=== PATIENT | female | born 1985 | race Caucasian/White ===

== ENCOUNTER 2017-03-28 05:30 | Inpatient (IN) ==
[2017-03-23 10:47] LABS: Basophils % 0.4 % (0.0-0.8); Eosinophils # 0.2 10*3/uL (0.0-0.87); Eosinophils % 2.4 % (0.00-10.9); Hematocrit 35.1 VOL% (35.7-47.0); Hemoglobin 11.3 GM/DL (12.0-16.0); Immature Granulocytes % 0.3 %; Immature Granulocytes Absolute 0.02 #; Lymphocytes # 1.3 10*3/uL (1.4-4.0); Lymphocytes % 19.6 % (21.3-54.2); Mean Corpuscular HGB Conc 32.2 GM/DL (32-36); Mean Corpuscular Hemoglobin 27 PG (27-34); Mean Corpuscular Volume 83.2 FL (87-102); Mean Platelet Volume 9.5 FL (9.6-12.0); Monocytes # 0.5 10*3/uL (0.11-0.8); Monocytes % 7.9 % (1.7-12.7); Neutrophils # 4.6 10*3/uL (1.4-7.4); Neutrophils % 69.4 % (38.7-73.9); Platelet Count 319 T/CUMM (130-400); Red Blood Count 4.22 MC/CUMM (3.8-5.5); Red Cell Distribution Width 17.9 % (9.3-17.3); White Blood Count 6.7 T/CUMM (4-12)
[2017-03-23 11:14] LABS: Apearance,Urine Slightly Hazy (Clear); Bilirubin,Urine Negative (Negative); Blood, Urine Negative (Negative); Glucose,Urine (UA) Negative (Negative); Ketones,Urine Negative (Negative); Mucus,Urine Occasional /LPF (Occasional); Nitrite,Urine Negative (Negative); Protein,Urine Negative; RBC,Urine <1 /HPF (0-4); Squamous Epithelial Cell,Urine Occasional /HPF (0-10); Urine Color Yellow (Yellow); Urine Specific Gravity 1.012 (1.001-1.035); Urine Urobilinogen < 2.0 EU/DL (0.2-1.0); WBC,Urine 1 /HPF (0-6)
[2017-03-28] MEDS ORDERED: cefOXitin 2,000 MG in SYRINGE 1 EACH IV ONE (07:00)
[2017-03-28] MEDS ORDERED: FAMOTIDINE 20 MG TABLET PO ONE (09:47)
[2017-03-28] MEDS ORDERED: DIAZEPAM 5 MG TABLET PO ONE (09:47)
[2017-03-28] MEDS ORDERED: DIAZEPAM 5 MG TABLET ONE (09:54)
[2017-03-28] MEDS ORDERED: FAMOTIDINE 20 MG TABLET ONE (09:54)
[2017-03-28] MEDS ORDERED: SCOPOLAMINE 1.5 MG PATCH TRANSDERM ONE ×2 (10:13→11:19)
[2017-03-28] MEDS ORDERED: ACETAMINOPHEN 325 MG TABLET PO PRN (13:51)
[2017-03-28] MEDS ORDERED: BENZOCAINE/MENTHOL LOZENGE 18/BOX PO PRN (13:51)
[2017-03-28] MEDS ORDERED: ONDANSETRON 4 MG/2 ML VIAL IV PRN (13:51)
[2017-03-28] MEDS ORDERED: BISACODYL 10 MG SUPP RECTAL PRN (13:51)
[2017-03-28] MEDS ORDERED: IBUPROFEN 800 MG TABLET PO PRN (13:51)
[2017-03-28] MEDS ORDERED: SEVOFLURANE 1 UNIT/15 MINUTE INH ONE (13:59)
[2017-03-28] MEDS ORDERED: PROPOFOL 200 MG/20 ML VIAL IV ONE (13:59)
[2017-03-28] MEDS ORDERED: fentaNYL 100 MCG/2 ML VIAL ONE (14:00)
[2017-03-28] MEDS ORDERED: HYDROmorphone 2 MG/1 ML VIAL ONE (14:00)
[2017-03-28] MEDS ORDERED: MIDAZOLAM 2 MG/2 ML VIAL ONE (14:00)
[2017-03-28] MEDS ORDERED: ACETAMINOPHEN 1,000 MG/100 ML VIAL IV ONE (14:01)
[2017-03-28] MEDS ORDERED: ONDANSETRON 4 MG/2 ML VIAL ONE (14:01)
[2017-03-28] MEDS ORDERED: DEXAMETHASONE 10 MG/1 ML VIAL ONE (14:01)
[2017-03-28] MEDS ORDERED: ROCURONIUM 100 MG/10 ML VIAL IV ONE (14:01)
[2017-03-28] MEDS ORDERED: SODIUM CHLORIDE 0.9% 1,000 ML IV ONE (14:01)
[2017-03-28] MEDS ORDERED: NEOSTIGMINE 10 MG/10 ML VIAL ONE (14:01)
[2017-03-28] MEDS ORDERED: GLYCOPYRROLATE 0.4 MG/2 ML VIAL ONE (14:01)
[2017-03-28] MEDS ORDERED: LACTATED RINGERS 1,000 ML IV ONE (14:01)
[2017-03-28 14:09] LABS: Hematocrit 32.3 VOL% (35.7-47.0); Hemoglobin 10.4 GM/DL (12.0-16.0)
[2017-03-28] MEDS ORDERED: MEPERIDINE 25 MG/1 ML VIAL IV ONE ×2 (14:14→14:29)
[2017-03-28] MEDS ORDERED: MEPERIDINE 25 MG/1 ML VIAL ONE (14:15)
[2017-03-28] MEDS: HYDROmorphone 2 MG/1 ML VIAL IV PRN ×2 (15:30→19:43)
[2017-03-28] MEDS ORDERED: INFLUENZA VIRUS VACCINE 0.5 ML SYRINGE IM ONE (15:30)
[2017-03-28] MEDS: LACTATED RINGERS 1,000 ML IV SCH (15:40)
[2017-03-28 16:15] LABS: Apearance,Urine CLEAR (Clear); Bilirubin,Urine Negative (Negative); Blood, Urine Negative (Negative); Glucose,Urine (UA) Negative (Negative); Ketones,Urine Negative (Negative); Mucus,Urine Occasional /LPF (Occasional); Nitrite,Urine Negative (Negative); Protein,Urine Negative; RBC,Urine 1 /HPF (0-4); Squamous Epithelial Cell,Urine Occasional /HPF (0-10); Urine Color Straw (Yellow); Urine Specific Gravity 1.008 (1.001-1.035); Urine Urobilinogen < 2.0 EU/DL (0.2-1.0); WBC,Urine 1 /HPF (0-6)
[2017-03-28] MEDS: KETOROLAC 30 MG/1 ML VIAL IV SCH ×2 (17:01→23:27)
[2017-03-28] MEDS: ceFAZolin 1,000 MG in SYRINGE 1 EACH IV SCH (19:50)
[2017-03-29] MEDS: LACTATED RINGERS 1,000 ML IV SCH (01:36)
[2017-03-29] MEDS: oxyCODONE/ACETAMINOPHEN 5-325 MG TABLET PO PRN ×5 (01:38→19:42)
[2017-03-29] MEDS: ceFAZolin 1,000 MG in SYRINGE 1 EACH IV SCH (03:41)
[2017-03-29 05:06] LABS: Basophils % 0.2 % (0.0-0.8); Hematocrit 29.4 VOL% (35.7-47.0); Hemoglobin 9.5 GM/DL (12.0-16.0); Immature Granulocytes % 0.4 %; Immature Granulocytes Absolute 0.07 #; Lymphocytes # 1.1 10*3/uL (1.4-4.0); Lymphocytes % 6.6 % (21.3-54.2); Mean Corpuscular HGB Conc 32.3 GM/DL (32-36); Mean Corpuscular Hemoglobin 27 PG (27-34); Mean Corpuscular Volume 83.5 FL (87-102); Mean Platelet Volume 9.2 FL (9.6-12.0); Monocytes # 1.2 10*3/uL (0.11-0.8); Monocytes % 6.7 % (1.7-12.7); Neutrophils # 14.7 10*3/uL (1.4-7.4); Neutrophils % 86.1 % (38.7-73.9); Platelet Count 246 T/CUMM (130-400); Red Blood Count 3.52 MC/CUMM (3.8-5.5); Red Cell Distribution Width 17.9 % (9.3-17.3); White Blood Count 17.1 T/CUMM (4-12)
[2017-03-29] MEDS: KETOROLAC 30 MG/1 ML VIAL IV SCH ×2 (05:39→12:38)
[2017-03-29] MEDS: FERROUS SULFATE 325 MG TABLET PO SCH ×2 (09:12→21:17)
[2017-03-29] MEDS: CETIRIZINE 10 MG TABLET PO SCH (12:38)
[2017-03-29] MEDS: MAGNESIUM HYDROXIDE SUSP 30 ML UDCUP PO PRN ×2 (14:18→21:17)
[2017-03-29] MEDS: DOCUSATE SODIUM 100 MG CAPSULE PO PRN (19:41)
[2017-03-30] MEDS: oxyCODONE/ACETAMINOPHEN 5-325 MG TABLET PO PRN ×2 (04:07→09:23)
[2017-03-30 07:24] VITALS: BP 126/73
[2017-03-30] MEDS: CETIRIZINE 10 MG TABLET PO SCH (09:22)
[2017-03-30] MEDS: FERROUS SULFATE 325 MG TABLET PO SCH (09:22)
[2017-03-30] MEDS: MAGNESIUM HYDROXIDE SUSP 30 ML UDCUP PO PRN (09:23)
[2017-03-30] MEDS: DOCUSATE SODIUM 100 MG CAPSULE PO PRN (09:23)
[2017-03-30] MEDS ORDERED: INFLUENZA VIRUS VACCINE 0.5 ML SYRINGE IM ONE (11:10)
== END 2017-03-30 12:10 | disposition home or self-care (01) | DRG 743 ==
LOC: N.SDSINP 05:30 → N.OR 05:30 → N.SDSINP 13:51 → N.OB 14:53
PROVIDERS: ADMIT Obstetrics & Gynecology; ATTEND Obstetrics & Gynecology